=== PATIENT | female | born 1960 | race African-American/Black ===

== ENCOUNTER 2023-03-13 21:03 | Emergency (ER) | payer MEDICAID ==
[~2023-03-13] VITALS: Ht 165.1 cm; Wt 103.4 kg
[~2023-03-13 21:03] MED LIST: AMLO5TAB4 PO; BUME2TAB7 PO; INSU100I26 SQ; INSU100I34 SQ; ISOS30TA86 PO; METO100T14 PO; PANT40TA2 PO
[2023-03-13] MEDS ORDERED: ONDANSETRON ODT 4 MG TAB.RAPDIS SL ONE (21:45)
[2023-03-13] MEDS ORDERED: MORPHINE SULFATE 4 MG/1 ML DISP.SYRIN IM ONE (21:45)
[2023-03-13] MEDS ORDERED: ONDANSETRON ODT 4 MG TAB.RAPDIS ONE (22:12)
[2023-03-13] MEDS ORDERED: MORPHINE SULFATE 4 MG/1 ML DISP.SYRIN ONE (22:13)
--- NOTE | 2023-03-13 22:38 | NUR ---
Patient sleeping with eyes closed, resting comfortably in bed. No signs of acute distress noted.
[2023-03-13] MEDS ORDERED: CYCL5TAB PO (22:42)
[2023-03-13] MEDS ORDERED: MAGN30OR PO (22:42)
[2023-03-13] MEDS ORDERED: OMEP20CA15 PO (22:44)
--- NOTE | 2023-03-14 01:25 | NUR ---
Called [facility] ambulance to [facility]. 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
--- NOTE | 2023-03-14 01:58 | NUR ---
Called [facility] [phone] notify that patient will be going back to facility.
[2023-03-14] MEDS ORDERED: MORPHINE SULFATE 4 MG/1 ML DISP.SYRIN IM ONE (02:00)
[2023-03-14] MEDS ORDERED: MORPHINE SULFATE 4 MG/1 ML DISP.SYRIN ONE (02:07)
--- NOTE | 2023-03-14 02:21 | NUR ---
Patient picked up by [facility] ambulance to take patient to [facility] with personal belongings. Patient in stable condition, no signs of acute distress noted.
[2023-03-14 02:25] VITALS: BP 155/88; TEMP 98.4; O2SAT 97
== END 2023-03-14 02:26 ==
LOC: ER 21:03
DX: S93.402A Sprain of unspecified ligament of left ankle, initial encounter (principal); S93.602A Unspecified sprain of left foot, initial encounter; K21.9 Gastro-esophageal reflux disease without esophagitis; N18.9 Chronic kidney disease, unspecified; E11.9 Type 2 diabetes mellitus without complications; Z79.4 Long term (current) use of insulin; Z79.899 Other long term (current) drug therapy; W18.39XA Other fall on same level, initial encounter; Y93.89 Activity, other specified; Y92.89 Other specified places as the place of occurrence of the external cause; Y99.8 Other external cause status
CPT/HCPCS: 99285; 73700; 73502; 73610; 73630; 96372 ×2; J2270 ×2; A4663; Q0162

== ENCOUNTER 2023-04-16 15:21 | Inpatient (IN) | payer MEDICARE, MEDICAID ==
[~2023-04-16] VITALS: Ht 170.2 cm; Wt 93.0 kg
[~2023-04-16 15:21] MED LIST changes: +CYCL5TAB PO; +MAGN30OR PO; +OMEP20CA15 PO
[2023-04-16] MEDS ORDERED: HYDR-894 PO (16:24)
[2023-04-16] MEDS ORDERED: ACET-73 PO (16:24)
[2023-04-16] MEDS ORDERED: SENN8.6T19 PO (16:24)
[2023-04-16] MEDS ORDERED: DOCU100T2 PO (16:24)
[2023-04-16] MEDS ORDERED: HYDR-3972 PO (16:24)
[2023-04-16] MEDS ORDERED: ZINC220T3 PO (16:24)
[2023-04-16] MEDS ORDERED: ASCO500C18 PO (16:24)
[2023-04-16] MEDS ORDERED: KETOROLAC TROMETHAMINE 15 MG INJ IVP ONE (17:00)
[2023-04-16 17:15] LABS: BASOPHILS # (AUTO) 0.1 K/UL (0.0-0.2); BASOPHILS % (AUTO) 1.9 % (0.0-2.0); DIFFERENTIAL COMMENT 0; EOSINOPHILS # (AUTO) 0.2 K/uL (0.0-0.7); EOSINOPHILS % (AUTO) 2.6 % (0.0-7.0); HEMATOCRIT 24.1 % (31.2-41.9); HEMOGLOBIN 7.8 g/dL (10.9-14.3); LYMPHOCYTES # (AUTO) 0.6 K/uL (0.8-4.8); LYMPHOCYTES % (AUTO) 8.1 % (20.5-51.5); MEAN CORPUSCULAR HEMOGLOBIN 28.4 uug (24.7-32.8); MEAN CORPUSCULAR HGB CONC 32 g/dL (32.3-35.6); MEAN CORPUSCULAR VOLUME 87.7 fL (75.5-95.3); MONOCYTES # (AUTO) 0.5 K/uL (0.1-1.30); MONOCYTES % (AUTO) 7.6 % (0.0-11.0); NEUTROPHILS # (AUTO) 5.5 K/uL (1.8-8.9); NEUTROPHILS % (AUTO) 79.8 % (38.5-71.5); PLATELET COUNT (AUTO) 232 K/uL (179-408); RED BLOOD CELL COUNT(AUTO) 2.75 MIL/uL (3.63-4.92); RED CELL DISTRIBUTION WIDTH 16.2 % (12.3-17.7); WHITE BLOOD COUNT (AUTO) 6.9 K/uL (3.8-11.8)
[2023-04-16 17:26] LABS: CALCIUM 8.5 mg/dL (8.5-10.1); CARBON DIOXIDE 22 mmol/L (21-32); CHLORIDE 109 mmol/L (98-107); CREATININE 3.5 mg/dL (0.6-1.3); GLUCOSE 95 mg/dL (74-106); POTASSIUM 4.2 mmol/L (3.5-5.1); SODIUM SERUM 142 mmol/L (136-145); UREA NITROGEN, BLOOD 60 mg/dL (7-18)
[2023-04-16 17:33] LABS: ALANINE AMINOTRANSFERASE 18 U/L (14-59); ALBUMIN 2.4 g/dL (3.4-5.0); ALKALINE PHOSPHATASE 126 U/L (50-136); ASPARTATE AMINOTRANSFERASE 8 U/L (15-37); BILIRUBIN,DIRECT 0.2 mg/dL (0.0-0.2); BILIRUBIN,TOTAL 0.4 mg/dL (0.2-1.0); LIPASE 30 U/L (73-393); TOTAL PROTEIN, SERUM 6.6 g/dL (6.4-8.2)
[2023-04-16] MEDS ORDERED: KETOROLAC TROMETHAMINE 15 MG INJ ONE (17:37)
[2023-04-16 18:46] LABS: *BILIRUBIN,URIN NEGATIVE (NEGATIVE); *BLOOD, URINE 2+ (NEGATIVE); *CLARITY,URINE CLOUDY (CLEAR); *COLOR,URINE YELLOW (YELLOW); *KETONES,URINE NEGATIVE (NEGATIVE); *UROBILINOGEN,URINE 0.2 E.U./dl (NORMAL); LEUKOCYTE ESTERASE ,URINE 3+ (NEGATIVE); NITRITE, URINE NEGATIVE (NEGATIVE); UGLUCOSE NEGATIVE (NEGATIVE)
[2023-04-16 18:51] LABS: *PROTEIN,URINE 3+ (NEGATIVE)
[2023-04-16] MEDS ORDERED: ONDANSETRON 4 MG/2 ML VIAL IV PRN (21:45)
[2023-04-16] MEDS ORDERED: hydrALAZINE HCL 25 MG TABLET PO PRN (21:45)
[2023-04-16] MEDS ORDERED: HYDROCODONE/APAP 5-325MG TABLET PO PRN (21:45)
[2023-04-17] MEDS ORDERED: ACETAMINOPHEN ES 500 MG TABLET PO PRN (00:15)
[2023-04-17 00:40] VITALS: BP 146/80; TEMP 98.3; O2SAT 98
[2023-04-17] MEDS ORDERED: CEFTRIAXONE /D5W 50ML IVPB **ER PYXIS IV ONE (03:20)
[2023-04-17] MEDS: CEFTRIAXONE 1 G in IV DEXTROSE 5% 50 ML IV SCH ×2 (03:50→20:53)
[2023-04-17 04:00] VITALS: BP 143/60; TEMP 98.1; O2SAT 94
[2023-04-17 06:32] LABS: BASOPHILS # (AUTO) 0.1 K/UL (0.0-0.2); BASOPHILS % (AUTO) 0.8 % (0.0-2.0); EOSINOPHILS # (AUTO) 0.1 K/uL (0.0-0.7); EOSINOPHILS % (AUTO) 2.2 % (0.0-7.0); HEMATOCRIT 25.7 % (31.2-41.9); HEMOGLOBIN 8.5 g/dL (10.9-14.3); LYMPHOCYTES # (AUTO) 0.8 K/uL (0.8-4.8); LYMPHOCYTES % (AUTO) 12.9 % (20.5-51.5); MEAN CORPUSCULAR HEMOGLOBIN 28.7 uug (24.7-32.8); MEAN CORPUSCULAR HGB CONC 33 g/dL (32.3-35.6); MEAN CORPUSCULAR VOLUME 87.4 fL (75.5-95.3); MONOCYTES # (AUTO) 0.7 K/uL (0.1-1.30); NEUTROPHILS # (AUTO) 4.4 K/uL (1.8-8.9); NEUTROPHILS % (AUTO) 72.1 % (38.5-71.5); PLATELET COUNT (AUTO) 244 K/uL (179-408); RED BLOOD CELL COUNT(AUTO) 2.95 MIL/uL (3.63-4.92); RED CELL DISTRIBUTION WIDTH 15.9 % (12.3-17.7); WHITE BLOOD COUNT (AUTO) 6.2 K/uL (3.8-11.8)
[2023-04-17 06:48] LABS: DIFFERENTIAL COMMENT 1
[2023-04-17] MEDS: PANTOPRAZOLE SODIUM 40 MG TABLET.DR PO SCH (07:02)
[2023-04-17] MEDS: CYCLOBENZAPRINE HCL 10 MG TABLET PO SCH ×3 (07:02→21:54)
[2023-04-17 07:07] LABS: THYROID STIMULATING HORMONE 0.915 mIU/mL (0.358-3.740)
[2023-04-17 07:26] LABS: ALBUMIN 2.4 g/dL (3.4-5.0); BILIRUBIN,TOTAL 0.3 mg/dL (0.2-1.0); CALCIUM 8.1 mg/dL (8.5-10.1); CREATININE 3.3 mg/dL (0.6-1.3); MAGNESIUM 1.6 mg/dL (1.8-2.4); PHOSPHOROUS 4.5 mg/dL (2.5-4.9); POTASSIUM 4.1 mmol/L (3.5-5.1); TOTAL PROTEIN, SERUM 6.8 g/dL (6.4-8.2)
[2023-04-17] MEDS: DOCUSATE SODIUM 100 MG CAPSULE PO SCH ×2 (08:26→17:00)
[2023-04-17] MEDS: ASCORBIC ACID 500 MG TABLET PO SCH (08:26)
[2023-04-17] MEDS: ISOSORBIDE MONONITRATE 30 MG TAB.SR.24H PO SCH (08:27)
[2023-04-17] MEDS: ZINC SULFATE 220 MG CAPSULE PO SCH (08:27)
[2023-04-17] MEDS: IV 1/2NS 1000 ML 1,000 ML IV PRN (08:28)
[2023-04-17] MEDS: AMLODIPINE 5 MG TABLET PO SCH (08:28)
[2023-04-17] MEDS ORDERED: METOPROLOL TARTRATE 50 MG TABLET PO ONE (09:00)
[2023-04-17] MEDS ORDERED: MAGNESIUM OXIDE 400 MG TABLET PO ONE (10:30)
[2023-04-17] MEDS: AZITHROMYCIN IV 500 MG in IV DEXTROSE 5% 250 ML IV SCH (11:54)
[2023-04-17] MEDS: MORPHINE SULFATE 2 MG/1 ML DISP.SYRIN IV PRN ×2 (11:54→21:54)
[2023-04-17 12:51] VITALS: BP 158/68; TEMP 97.8; O2SAT 99
[2023-04-17] MEDS ORDERED: REMEDY ESSENTIAL ZINC PASTE 113 GM TOP PRN (13:15)
[2023-04-17 16:16] VITALS: BP 123/55; TEMP 98.2; O2SAT 95
[2023-04-17 18:30] LABS: *OCCULT BLOOD STOOL NEGATIVE (NEGATIVE)
[2023-04-17] MEDS ORDERED: INSULIN REGULAR, HUMAN 300 UNIT/3 ML VIAL SQ PRN (19:45)
[2023-04-17] MEDS ORDERED: DEXTROSE 50% 50 ML DISP.SYRIN IV PRN (19:45)
[2023-04-17 20:29] VITALS: BP 120/53; TEMP 98.3; O2SAT 97
[2023-04-17] MEDS: MUPIROCIN 2% OINT 22 GM TUBE NS SCH (20:53)
[2023-04-17] MEDS: SENNOSIDES 1 TABLET PO SCH (21:00)
[2023-04-17] MEDS: INSULIN GLARGINE,HUM 300 UNITS/3 ML CARTRIDGE SQ SCH (21:01)
[2023-04-17] MEDS: REMEDY ESSENTIAL ZINC PASTE 113 GM TOP SCH (21:05)
[2023-04-17] MEDS: BLOOD SUGAR DIAGNOSTIC 1 EACH STRIP VI SCH (21:06)
[2023-04-18 00:07] VITALS: BP 151/68; TEMP 98.3; O2SAT 95
[2023-04-18] MEDS: IV 1/2NS 1000 ML 1,000 ML IV PRN (02:29)
[2023-04-18 04:05] VITALS: BP 137/63; TEMP 98.2; O2SAT 97
[2023-04-18] MEDS: CYCLOBENZAPRINE HCL 10 MG TABLET PO SCH ×3 (05:18→21:08)
[2023-04-18] MEDS: PANTOPRAZOLE SODIUM 40 MG TABLET.DR PO SCH (06:44)
[2023-04-18] MEDS: BLOOD SUGAR DIAGNOSTIC 1 EACH STRIP VI SCH ×4 (06:45→20:11)
[2023-04-18] MEDS: MUPIROCIN 2% OINT 22 GM TUBE NS SCH ×2 (08:23→20:20)
[2023-04-18] MEDS: DOCUSATE SODIUM 100 MG CAPSULE PO SCH ×2 (08:24→16:29)
[2023-04-18] MEDS: ZINC SULFATE 220 MG CAPSULE PO SCH (08:24)
[2023-04-18] MEDS: ISOSORBIDE MONONITRATE 30 MG TAB.SR.24H PO SCH (08:24)
[2023-04-18] MEDS: AMLODIPINE 5 MG TABLET PO SCH (08:25)
[2023-04-18] MEDS: REMEDY ESSENTIAL ZINC PASTE 113 GM TOP SCH ×2 (08:25→21:03)
[2023-04-18] MEDS: ASCORBIC ACID 500 MG TABLET PO SCH (08:25)
[2023-04-18] MEDS: MEDIHONEY= THERAHONEY 1.5 OZ TUBE TOP SCH (08:26)
[2023-04-18 08:44] VITALS: BP 154/73; TEMP 97.5; O2SAT 98
[2023-04-18] MEDS: MORPHINE SULFATE 2 MG/1 ML DISP.SYRIN IV PRN ×2 (09:53→20:21)
[2023-04-18] MEDS ORDERED: PHENAZOPYRIDINE HCL 100 MG TABLET PO PRN (10:00)
[2023-04-18] MEDS: AZITHROMYCIN IV 500 MG in IV DEXTROSE 5% 250 ML IV SCH (11:05)
[2023-04-18 11:24] VITALS: BP 122/55; TEMP 97.9; O2SAT 94
[2023-04-18 16:24] VITALS: BP 150/70; TEMP 98; O2SAT 98
[2023-04-18] MEDS ORDERED: BLOOD SUGAR DIAGNOSTIC 1 EACH STRIP VI SCH (16:30)
[2023-04-18] MEDS ORDERED: INSULIN REGULAR, HUMAN 300 UNIT/3 ML VIAL SQ PRN (17:00)
[2023-04-18] MEDS ORDERED: DEXTROSE 50% 50 ML DISP.SYRIN IV PRN (17:00)
[2023-04-18] MEDS: CEFTRIAXONE 1 G in IV DEXTROSE 5% 50 ML IV SCH (20:20)
[2023-04-18 20:36] VITALS: BP 138/67; TEMP 98.3; O2SAT 94
[2023-04-18] MEDS: SENNOSIDES 1 TABLET PO SCH (21:00)
[2023-04-18] MEDS: INSULIN GLARGINE,HUM 300 UNITS/3 ML CARTRIDGE SQ SCH (21:00)
[2023-04-19] VITALS (11 sets, daily range): BP systolic 106–147; BP diastolic 61–76; TEMP 98.1–98.4; O2SAT 95–99
[2023-04-19] MEDS: PANTOPRAZOLE SODIUM 40 MG TABLET.DR PO SCH (05:24)
[2023-04-19] MEDS: CYCLOBENZAPRINE HCL 10 MG TABLET PO SCH ×3 (05:24→22:28)
[2023-04-19] MEDS: IV 1/2NS 1000 ML 1,000 ML IV PRN (06:33)
[2023-04-19] MEDS: BLOOD SUGAR DIAGNOSTIC 1 EACH STRIP VI SCH ×3 (06:35→16:12)
[2023-04-19] MEDS: ZINC SULFATE 220 MG CAPSULE PO SCH (08:57)
[2023-04-19] MEDS: ASCORBIC ACID 500 MG TABLET PO SCH (08:57)
[2023-04-19] MEDS: AZITHROMYCIN 250 MG TABLET PO SCH (08:57)
[2023-04-19] MEDS: AMLODIPINE 5 MG TABLET PO SCH (08:58)
[2023-04-19] MEDS: ISOSORBIDE MONONITRATE 30 MG TAB.SR.24H PO SCH (08:58)
[2023-04-19] MEDS: MEDIHONEY= THERAHONEY 1.5 OZ TUBE TOP SCH (09:09)
[2023-04-19] MEDS: MUPIROCIN 2% OINT 22 GM TUBE NS SCH ×2 (09:09→20:42)
[2023-04-19] MEDS: REMEDY ESSENTIAL ZINC PASTE 113 GM TOP SCH ×2 (09:09→20:43)
[2023-04-19] MEDS: MORPHINE SULFATE 2 MG/1 ML DISP.SYRIN IV PRN ×2 (10:08→22:43)
[2023-04-19 10:36] LABS: BASOPHILS % (AUTO) 0.9 % (0.0-2.0); EOSINOPHILS # (AUTO) 0.2 K/uL (0.0-0.7); HEMATOCRIT 22.4 % (31.2-41.9); LYMPHOCYTES # (AUTO) 0.9 K/uL (0.8-4.8); LYMPHOCYTES % (AUTO) 16.6 % (20.5-51.5); MEAN CORPUSCULAR HEMOGLOBIN 28.5 uug (24.7-32.8); MEAN CORPUSCULAR HGB CONC 33 g/dL (32.3-35.6); MEAN CORPUSCULAR VOLUME 86.9 fL (75.5-95.3); MONOCYTES # (AUTO) 0.8 K/uL (0.1-1.30); MONOCYTES % (AUTO) 15.7 % (0.0-11.0); NEUTROPHILS # (AUTO) 3.3 K/uL (1.8-8.9); NEUTROPHILS % (AUTO) 62.8 % (38.5-71.5); PLATELET COUNT (AUTO) 228 K/uL (179-408); RED BLOOD CELL COUNT(AUTO) 2.58 MIL/uL (3.63-4.92); RED CELL DISTRIBUTION WIDTH 15.5 % (12.3-17.7); WHITE BLOOD COUNT (AUTO) 5.3 K/uL (3.8-11.8)
[2023-04-19 10:45] LABS: CALCIUM 8.1 mg/dL (8.5-10.1); CREATININE 3.8 mg/dL (0.6-1.3); POTASSIUM 4.1 mmol/L (3.5-5.1)
[2023-04-19 10:50] LABS: DIFFERENTIAL COMMENT 1
[2023-04-19 10:51] LABS: HEMOGLOBIN 7.3 g/dL (10.9-14.3)
[2023-04-19 11:00] LABS: LYMPHOCYTES % (MANUAL) 0 % (20-40); NEUTROPHILS % (MANUAL) 0 % (42-75)
[2023-04-19] MEDS: DOCUSATE SODIUM 100 MG CAPSULE PO SCH (17:42)
[2023-04-19] MEDS: SENNOSIDES 1 TABLET PO SCH ×2 (20:39→20:55)
[2023-04-19] MEDS: INSULIN GLARGINE,HUM 300 UNITS/3 ML CARTRIDGE SQ SCH (20:47)
[2023-04-19] MEDS: CEFTRIAXONE 1 G in IV DEXTROSE 5% 50 ML IV SCH (22:41)
[2023-04-20 05:37] VITALS: BP 133/65; TEMP 97.9; O2SAT 95
[2023-04-20] MEDS: PANTOPRAZOLE SODIUM 40 MG TABLET.DR PO SCH (06:12)
[2023-04-20] MEDS: CYCLOBENZAPRINE HCL 10 MG TABLET PO SCH ×2 (06:12→13:16)
[2023-04-20] MEDS: BLOOD SUGAR DIAGNOSTIC 1 EACH STRIP VI SCH (06:22)
[2023-04-20 06:29] LABS: BASOPHILS # (AUTO) 0.1 K/UL (0.0-0.2); EOSINOPHILS # (AUTO) 0.2 K/uL (0.0-0.7); EOSINOPHILS % (AUTO) 3.5 % (0.0-7.0); HEMATOCRIT 28.4 % (31.2-41.9); HEMOGLOBIN 9.5 g/dL (10.9-14.3); LYMPHOCYTES # (AUTO) 0.9 K/uL (0.8-4.8); LYMPHOCYTES % (AUTO) 16.6 % (20.5-51.5); MEAN CORPUSCULAR HEMOGLOBIN 28.7 uug (24.7-32.8); MEAN CORPUSCULAR HGB CONC 33 g/dL (32.3-35.6); MEAN CORPUSCULAR VOLUME 86.2 fL (75.5-95.3); MONOCYTES # (AUTO) 0.9 K/uL (0.1-1.30); MONOCYTES % (AUTO) 15.9 % (0.0-11.0); NEUTROPHILS # (AUTO) 3.5 K/uL (1.8-8.9); PLATELET COUNT (AUTO) 260 K/uL (179-408); RED BLOOD CELL COUNT(AUTO) 3.29 MIL/uL (3.63-4.92); RED CELL DISTRIBUTION WIDTH 15.6 % (12.3-17.7); WHITE BLOOD COUNT (AUTO) 5.5 K/uL (3.8-11.8)
[2023-04-20 06:40] LABS: ALANINE AMINOTRANSFERASE 15 U/L (14-59); ALBUMIN 2.1 g/dL (3.4-5.0); ALKALINE PHOSPHATASE 114 U/L (50-136); ASPARTATE AMINOTRANSFERASE < 5 U/L (15-37); BILIRUBIN,TOTAL 0.3 mg/dL (0.2-1.0); CALCIUM 8.3 mg/dL (8.5-10.1); CARBON DIOXIDE 21 mmol/L (21-32); CHLORIDE 107 mmol/L (98-107); CREATININE 3.7 mg/dL (0.6-1.3); GLUCOSE 96 mg/dL (74-106); MAGNESIUM 1.8 mg/dL (1.8-2.4); PHOSPHOROUS 3.9 mg/dL (2.5-4.9); POTASSIUM 4.2 mmol/L (3.5-5.1); SODIUM SERUM 139 mmol/L (136-145); TOTAL PROTEIN, SERUM 6.5 g/dL (6.4-8.2); UREA NITROGEN, BLOOD 47 mg/dL (7-18)
[2023-04-20 06:55] LABS: DIFFERENTIAL COMMENT 1
[2023-04-20 08:00] VITALS: BP 149/72; TEMP 97.6; O2SAT 97
[2023-04-20] MEDS ORDERED: CEFT1VIA15 IV (08:39)
[2023-04-20] MEDS: ASCORBIC ACID 500 MG TABLET PO SCH (08:45)
[2023-04-20] MEDS: AMLODIPINE 5 MG TABLET PO SCH (08:45)
[2023-04-20] MEDS: ZINC SULFATE 220 MG CAPSULE PO SCH (08:45)
[2023-04-20] MEDS: DOCUSATE SODIUM 100 MG CAPSULE PO SCH (08:46)
[2023-04-20] MEDS: ISOSORBIDE MONONITRATE 30 MG TAB.SR.24H PO SCH (08:46)
[2023-04-20] MEDS: AZITHROMYCIN 250 MG TABLET PO SCH (08:46)
[2023-04-20] MEDS: MUPIROCIN 2% OINT 22 GM TUBE NS SCH (08:49)
[2023-04-20] MEDS: MEDIHONEY= THERAHONEY 1.5 OZ TUBE TOP SCH (08:49)
[2023-04-20] MEDS: REMEDY ESSENTIAL ZINC PASTE 113 GM TOP SCH (08:50)
[2023-04-20 11:13] LABS: ANISOCYTOSIS 1+; EOSINOPHILS % (MANUAL) 3 % (0-8); LYMPHOCYTES % (MANUAL) 23 % (20-40); MONOCYTES % (MANUAL) 15 % (2-10); NEUTROPHILS % (MANUAL) 59 % (42-75); PLATELET ESTIMATE ADEQUATE
[2023-04-20 11:14] VITALS: BP 159/83; TEMP 98.3; O2SAT 96
[2023-04-20 11:24] VITALS: BP 159/83
[2023-04-20] MEDS: MORPHINE SULFATE 2 MG/1 ML DISP.SYRIN IV PRN (13:33)
[2023-04-20] MEDS ORDERED: OXYCODONE/APAP 5-325 MG TABLET PO PRN (15:00)
== END 2023-04-20 15:15 | DRG 689 ==
LOC: ER 15:26 → TELE3 23:46 → MEDSURG3 04-19 10:15
PROVIDERS: ADMIT Internal Medicine; ATTEND Internal Medicine
PROC: 30233N1 Transfusion of Nonautologous Red Blood Cells into Peripheral Vein, Percutaneous Approach (ICD-10-PCS; principal; 2023-04-19)
DX: N39.0 Urinary tract infection, site not specified (principal); E43 Unspecified severe protein-calorie malnutrition; J15.9 Unspecified bacterial pneumonia; N17.9 Acute kidney failure, unspecified; I13.0 Hypertensive heart and chronic kidney disease with heart failure and stage 1 through stage 4 chronic kidney disease, or unspecified chronic kidney disease; I50.32 Chronic diastolic (congestive) heart failure; N18.4 Chronic kidney disease, stage 4 (severe); L97.421 Non-pressure chronic ulcer of left heel and midfoot limited to breakdown of skin; D68.59 Other primary thrombophilia; K45.8 Other specified abdominal hernia without obstruction or gangrene; M89.8X9 Other specified disorders of bone, unspecified site; Z74.09 Other reduced mobility; E11.22 Type 2 diabetes mellitus with diabetic chronic kidney disease; G89.29 Other chronic pain; L90.5 Scar conditions and fibrosis of skin; E66.9 Obesity, unspecified; Z68.32 Body mass index [BMI] 32.0-32.9, adult; Z71.3 Dietary counseling and surveillance; Z87.891 Personal history of nicotine dependence; E11.621 Type 2 diabetes mellitus with foot ulcer; Z22.322 Carrier or suspected carrier of Methicillin resistant Staphylococcus aureus; Z79.899 Other long term (current) drug therapy; Z93.3 Colostomy status; Z59.01 Sheltered homelessness; Y95 Nosocomial condition; S30.0XXA Contusion of lower back and pelvis, initial encounter; X58.XXXA Exposure to other specified factors, initial encounter; Y92.129 Unspecified place in nursing home as the place of occurrence of the external cause; E11.42 Type 2 diabetes mellitus with diabetic polyneuropathy; D64.9 Anemia, unspecified; D63.8 Anemia in other chronic diseases classified elsewhere; Z79.4 Long term (current) use of insulin; Z93.2 Ileostomy status; Z20.822 Contact with and (suspected) exposure to COVID-19
CPT/HCPCS: 36415; 70030-TC; 71045; 83550; 83605; 83690; 83735; 84100; 84443; 84484; 85025; 85610; 86850; 86900; 86901; 86920; 87040; 93005; A4663; A6209; C1758; G0378; J0456; J0696; J1815; J1885; J2270; J7050; P9016; Q0144

== ENCOUNTER 2023-08-02 11:00 | Inpatient (IN) | payer MEDICARE, OTHER ==
[~2023-08-02] VITALS: Ht 170.2 cm; Wt 90.3 kg
[2023-08-02] MEDS: ACIDOPHILUS/BULGARICUS CHEW TAB PO SCH
[~2023-08-02 11:00] MED LIST changes: +ACET-73 PO; +ASCO500C18 PO; +CEFT1VIA15 IV; +DOCU100T2 PO; +HYDR-3972 PO; +HYDR-894 PO; -PANT40TA2 PO; +SENN8.6T19 PO; +ZINC220T3 PO
[2023-08-02] MEDS ORDERED: IV NORMAL SALINE 1000 ML BAG IV ONE (11:15)
[2023-08-02] MEDS ORDERED: CEFTRIAXONE 1 G in IV DEXTROSE 5% 50 ML IV ONE (11:15)
[2023-08-02] MEDS ORDERED: CLINDAMYCIN PHOSPHATE IV 600 MG in IV DEXTROSE 5% 100 ML IV ONE (11:15)
[2023-08-02] MEDS ORDERED: VANCOMYCIN IV 1,000 MG in IV DEXTROSE 5% 250 ML IV ONE (11:15)
[2023-08-02] MEDS ORDERED: CEFTRIAXONE /D5W 50ML IVPB **ER PYXIS IV ONE (11:31)
[2023-08-02] MEDS ORDERED: VANCOMYCIN IV 200 ML ONE (11:34)
[2023-08-02] MEDS ORDERED: CLINDAMYCIN 600 MG PIGGYBACK**ER OMNI IV ONE (11:34)
[2023-08-02] MEDS ORDERED: ACET-3117 PO (11:35)
[2023-08-02] MEDS ORDERED: PANT40TA49 PO (11:35)
[2023-08-02] MEDS ORDERED: COLL30OI TP (11:35)
[2023-08-02] MEDS ORDERED: FURO-151 PO (11:35)
[2023-08-02] MEDS ORDERED: AMLO10TA59 PO (11:35)
[2023-08-02] MEDS ORDERED: TRAM50TA2 PO (11:35)
[2023-08-02] MEDS ORDERED: ONDA4TAB11 PO (11:35)
[2023-08-02 11:47] LABS: BASOPHILS # (AUTO) 0.1 K/UL (0.0-0.2); BASOPHILS % (AUTO) 1.2 % (0.0-2.0); EOSINOPHILS # (AUTO) 0.2 K/uL (0.0-0.7); EOSINOPHILS % (AUTO) 2.9 % (0.0-7.0); HEMOGLOBIN 7.7 g/dL (10.9-14.3); LYMPHOCYTES # (AUTO) 1.2 K/uL (0.8-4.8); LYMPHOCYTES % (AUTO) 18.8 % (20.5-51.5); MEAN CORPUSCULAR HEMOGLOBIN 29.8 uug (24.7-32.8); MEAN CORPUSCULAR HGB CONC 32 g/dL (32.3-35.6); MEAN CORPUSCULAR VOLUME 93.2 fL (75.5-95.3); MONOCYTES # (AUTO) 0.8 K/uL (0.1-1.30); MONOCYTES % (AUTO) 12.8 % (0.0-11.0); NEUTROPHILS % (AUTO) 64.3 % (38.5-71.5); PLATELET COUNT (AUTO) 266 K/uL (179-408); RED BLOOD CELL COUNT(AUTO) 2.58 MIL/uL (3.63-4.92); RED CELL DISTRIBUTION WIDTH 16.3 % (12.3-17.7); WHITE BLOOD COUNT (AUTO) 6.2 K/uL (3.8-11.8)
[2023-08-02 12:01] LABS: DIFFERENTIAL COMMENT 1
[2023-08-02] MEDS ORDERED: GLUC1KIT IM (12:08)
[2023-08-02] MEDS ORDERED: OXYC-128 PO (12:08)
[2023-08-02] MEDS ORDERED: INSU100V28 SQ (12:08)
[2023-08-02 12:16] LABS: ALANINE AMINOTRANSFERASE 63 U/L (14-59); ALBUMIN 2.5 g/dL (3.4-5.0); ALKALINE PHOSPHATASE 130 U/L (50-136); ASPARTATE AMINOTRANSFERASE 27 U/L (15-37); BILIRUBIN,DIRECT 0.1 mg/dL (0.0-0.2); BILIRUBIN,TOTAL 0.2 mg/dL (0.2-1.0); CARBON DIOXIDE 21 mmol/L (21-32); CHLORIDE 112 mmol/L (98-107); CREATININE 3.5 mg/dL (0.6-1.3); GLUCOSE 64 mg/dL (74-106); SODIUM SERUM 143 mmol/L (136-145); TOTAL PROTEIN, SERUM 6.6 g/dL (6.4-8.2); UREA NITROGEN, BLOOD 76 mg/dL (7-18)
[2023-08-02 12:58] LABS: POTASSIUM 6.5 mmol/L (3.5-5.1)
[2023-08-02 13:07] LABS: NT-PRO BNP 2461 pg/mL (0-125)
[2023-08-02] MEDS ORDERED: hydrALAZINE HCL 20 MG/1 ML VIAL ONE (16:09)
[2023-08-02] MEDS ORDERED: hydrALAZINE HCL 20 MG/1 ML VIAL IV ONE (16:15)
[2023-08-02] MEDS ORDERED: DEXTROSE 50% 50 ML DISP.SYRIN IV ONE (19:00)
[2023-08-02] MEDS ORDERED: ALBUTEROL SULFATE 2.5 MG/3 ML NEBU NEB ONE (19:00)
[2023-08-02] MEDS ORDERED: FUROSEMIDE 20 MG/2 ML VIAL IVP ONE (19:00)
[2023-08-02] MEDS ORDERED: SODIUM BICARBONATE 8.4% 50 MEQ/50 ML DISP.SYRIN IV ONE ×2 (19:00→19:19)
[2023-08-02] MEDS ORDERED: INSULIN REGULAR, HUMAN 300 UNIT/3 ML VIAL IV ONE (19:00)
[2023-08-02] MEDS ORDERED: ALBUTEROL SULFATE 2.5 MG/3 ML NEBU ONE ×2 (19:14)
[2023-08-02 19:15] VITALS: O2SAT 99
[2023-08-02] MEDS ORDERED: FUROSEMIDE 20 MG/2 ML VIAL ONE (19:17)
[2023-08-02] MEDS ORDERED: SODIUM POLYSTYRENE SULFONATE 15 G/60 ML LIQUID UDC ONE (19:19)
[2023-08-02] MEDS ORDERED: INSULIN REGULAR, HUMAN 300 UNIT/3 ML VIAL ONE (19:19)
[2023-08-02 19:25] VITALS: O2SAT 99
[2023-08-02 19:30] VITALS: O2SAT 100
[2023-08-02] MEDS: SODIUM POLYSTYRENE SULFONATE 15 G/60 ML LIQUID UDC PO ONE ×2 (19:38→20:00)
[2023-08-02 20:16] LABS: CALCIUM 8.9 mg/dL (8.5-10.1); CREATININE 3.5 mg/dL (0.6-1.3)
[2023-08-02 20:21] LABS: POTASSIUM 6.4 mmol/L (3.5-5.1)
[2023-08-02] MEDS ORDERED: hydrALAZINE HCL 25 MG TABLET PO PRN (20:45)
[2023-08-02] MEDS ORDERED: DEXTROSE 50% 50 ML DISP.SYRIN IV PRN (20:45)
[2023-08-02] MEDS: BLOOD SUGAR DIAGNOSTIC 1 EACH STRIP VI SCH (20:58)
[2023-08-02] MEDS ORDERED: PIPERACILLIN/TAZOBACTAM/D5W 50 ML ONE (21:38)
[2023-08-02] MEDS ORDERED: SODIUM POLYSTYRENE SULFONATE 15 G/60 ML LIQUID UDC PO ONE (22:24)
[2023-08-02] MEDS ORDERED: ACETAMINOPHEN 325 MG TABLET PO PRN (22:30)
[2023-08-02 23:15] VITALS: BP 120/53; TEMP 97.7; O2SAT 100
[2023-08-02] MEDS: SENNOSIDES 1 TABLET PO SCH (23:16)
[2023-08-02] MEDS: OXYCODONE/APAP 5-325 MG TABLET PO PRN (23:18)
[2023-08-02] MEDS: CYCLOBENZAPRINE HCL 10 MG TABLET PO SCH (23:19)
[2023-08-02] MEDS: HEPARIN SODIUM,PORCINE 5,000 UNITS/ML VIAL SQ SCH (23:19)
[2023-08-02] MEDS: PIPERACILLIN/TAZO 2.25 G in IV DEXTROSE 5% 50 ML IV SCH (23:20)
[2023-08-03] MEDS: IV 1/2NS 1000 ML 1,000 ML IV PRN (00:30)
[2023-08-03] MEDS ORDERED: PIPERACILLIN/TAZO 2.25 GM VIAL ONE (02:46)
[2023-08-03 04:20] VITALS: BP 106/45; TEMP 98; O2SAT 95
[2023-08-03 04:59] LABS: *BILIRUBIN,URIN NEGATIVE (NEGATIVE); *BLOOD, URINE 2+ (NEGATIVE); *COLOR,URINE YELLOW (YELLOW); *KETONES,URINE NEGATIVE (NEGATIVE); *UROBILINOGEN,URINE 0.2 E.U./dl (NORMAL); LEUKOCYTE ESTERASE ,URINE 1+ (NEGATIVE); NITRITE, URINE POSITIVE (NEGATIVE); UGLUCOSE NEGATIVE (NEGATIVE)
[2023-08-03 05:01] LABS: *CLARITY,URINE HAZY (CLEAR); *PROTEIN,URINE 3+ (NEGATIVE)
[2023-08-03 05:22] LABS: WBC,URINE 50-80 /HPF (0-3)
[2023-08-03 05:23] LABS: BACTERIA,URINE MANY /HPF (NONE SEEN); SQUAMOUS EPITHELIAL CELL,UR FEW /HPF (NONE SEEN)
[2023-08-03] MEDS: PIPERACILLIN/TAZO 2.25 G in IV DEXTROSE 5% 50 ML IV SCH ×3 (05:33→22:12)
[2023-08-03] MEDS: PANTOPRAZOLE SODIUM 40 MG TABLET.DR PO SCH (06:13)
[2023-08-03] MEDS: CYCLOBENZAPRINE HCL 10 MG TABLET PO SCH (06:13)
[2023-08-03] MEDS: BLOOD SUGAR DIAGNOSTIC 1 EACH STRIP VI SCH ×4 (06:36→20:52)
[2023-08-03 08:16] LABS: BASOPHILS # (AUTO) 0.1 K/UL (0.0-0.2); EOSINOPHILS # (AUTO) 0.1 K/uL (0.0-0.7); EOSINOPHILS % (AUTO) 1.4 % (0.0-7.0); HEMATOCRIT 21.1 % (31.2-41.9); LYMPHOCYTES % (AUTO) 17.9 % (20.5-51.5); MEAN CORPUSCULAR HEMOGLOBIN 29.4 uug (24.7-32.8); MEAN CORPUSCULAR HGB CONC 31 g/dL (32.3-35.6); MONOCYTES # (AUTO) 0.7 K/uL (0.1-1.30); MONOCYTES % (AUTO) 12.7 % (0.0-11.0); NEUTROPHILS # (AUTO) 3.8 K/uL (1.8-8.9); PLATELET COUNT (AUTO) 213 K/uL (179-408); RED CELL DISTRIBUTION WIDTH 16.5 % (12.3-17.7); WHITE BLOOD COUNT (AUTO) 5.6 K/uL (3.8-11.8)
[2023-08-03] MEDS: ASCORBIC ACID 500 MG TABLET PO SCH (08:20)
[2023-08-03] MEDS: AMLODIPINE 10 MG TABLET PO SCH (08:20)
[2023-08-03] MEDS: METOPROLOL TARTRATE 50 MG TABLET PO SCH ×2 (08:21→20:42)
[2023-08-03] MEDS: ACIDOPHILUS/BULGARICUS CHEW TAB PO SCH ×3 (08:21→21:00)
[2023-08-03] MEDS: DOCUSATE SODIUM 100 MG CAPSULE PO SCH ×3 (08:21→17:34)
[2023-08-03] MEDS: HEPARIN SODIUM,PORCINE 5,000 UNITS/ML VIAL SQ SCH ×2 (08:22→20:44)
[2023-08-03 08:51] LABS: DIFFERENTIAL COMMENT 1; RED BLOOD CELL COUNT(AUTO) 2.25 MIL/uL (3.63-4.92)
[2023-08-03 08:53] LABS: HEMOGLOBIN 6.6 g/dL (10.9-14.3)
[2023-08-03 08:54] LABS: THYROID STIMULATING HORMONE 0.851 mIU/mL (0.358-3.740)
[2023-08-03] MEDS ORDERED: ISOSORBIDE MONONITRATE 30 MG TAB.SR.24H PO SCH ×2 (09:00)
[2023-08-03 09:17] LABS: ALBUMIN 2.2 g/dL (3.4-5.0); CREATININE 3.7 mg/dL (0.6-1.3); MAGNESIUM 1.7 mg/dL (1.8-2.4); PHOSPHOROUS 4.8 mg/dL (2.5-4.9); POTASSIUM 6.1 mmol/L (3.5-5.1); TOTAL PROTEIN, SERUM 5.8 g/dL (6.4-8.2)
[2023-08-03 09:29] LABS: BILIRUBIN,TOTAL 0.2 mg/dL (0.2-1.0); CALCIUM 8.2 mg/dL (8.5-10.1)
[2023-08-03] MEDS ORDERED: MAGNESIUM OXIDE 400 MG TABLET PO ONE (09:30)
[2023-08-03] MEDS ORDERED: DEXTROSE 50% 50 ML DISP.SYRIN IV ONE (09:30)
[2023-08-03] MEDS ORDERED: INSULIN REGULAR, HUMAN 300 UNIT/3 ML VIAL IV ONE (09:30)
[2023-08-03] MEDS ORDERED: VANCOMYCIN IV 1,000 MG in IV DEXTROSE 5% 250 ML IV ONE (10:00)
[2023-08-03 10:05] LABS: IRON, SERUM 28 ug/dL (50-175)
[2023-08-03] MEDS ORDERED: REMEDY ESSENTIAL ZINC PASTE 113 GM TOP PRN (10:30)
[2023-08-03 11:55] VITALS: BP 106/58; TEMP 98.7; O2SAT 97
[2023-08-03] MEDS: ISOSORBIDE MONONITRATE 30 MG TAB.SR.24H PO SCH (12:21)
[2023-08-03] MEDS ORDERED: SODIUM POLYSTYRENE SULFONATE 15 G/60 ML LIQUID UDC PO ONE (13:15)
[2023-08-03] MEDS: SODIUM CITRATE/CITRIC ACID (500/334MG/5ML) UDC 30 ML SOLUTION PO SCH ×3 (13:37→20:35)
[2023-08-03] MEDS ORDERED: CYCLOBENZAPRINE HCL 10 MG TABLET PO PRN (14:00)
[2023-08-03 16:03] VITALS: BP 134/56; TEMP 96.6; O2SAT 97
[2023-08-03] MEDS ORDERED: CADEXOMER IODINE 40 GM TUBE TOP SCH (17:00)
[2023-08-03] MEDS: CLOTRIMAZOLE 1% CREAM 30 GM TUBE TOP SCH (17:00)
[2023-08-03 17:10] LABS: EOSINOPHILS % (MANUAL) 2 % (0-8); LYMPHOCYTES % (MANUAL) 20 % (20-40); MONOCYTES % (MANUAL) 14 % (2-10); NEUTROPHILS % (MANUAL) 64 % (42-75)
[2023-08-03 17:11] LABS: ANISOCYTOSIS 2+; PLATELET ESTIMATE ADEQUATE
[2023-08-03 20:24] VITALS: BP 106/43; TEMP 98.5; O2SAT 94
[2023-08-03] MEDS: REMEDY ESSENTIAL ZINC PASTE 113 GM TOP SCH (20:36)
[2023-08-03] MEDS: SENNOSIDES 1 TABLET PO SCH ×2 (20:36→21:00)
[2023-08-04] VITALS (9 sets, daily range): BP systolic 120–171; BP diastolic 52–75; TEMP 98.2–98.5; O2SAT 96–98
[2023-08-04] MEDS: PANTOPRAZOLE SODIUM 40 MG TABLET.DR PO SCH ×2 (06:27→06:37)
[2023-08-04] MEDS: PIPERACILLIN/TAZO 2.25 G in IV DEXTROSE 5% 50 ML IV SCH (06:27)
[2023-08-04] MEDS: BLOOD SUGAR DIAGNOSTIC 1 EACH STRIP VI SCH ×4 (06:33→20:48)
[2023-08-04] MEDS: ACIDOPHILUS/BULGARICUS CHEW TAB PO SCH ×2 (08:50→20:38)
[2023-08-04] MEDS: ISOSORBIDE MONONITRATE 30 MG TAB.SR.24H PO SCH (08:51)
[2023-08-04] MEDS: OXYCODONE/APAP 5-325 MG TABLET PO PRN (08:52)
[2023-08-04] MEDS: METOPROLOL TARTRATE 50 MG TABLET PO SCH ×2 (08:52→20:39)
[2023-08-04] MEDS: CADEXOMER IODINE 40 GM TUBE TOP SCH ×2 (08:53→16:40)
[2023-08-04] MEDS: AMLODIPINE 10 MG TABLET PO SCH (08:53)
[2023-08-04] MEDS: ASCORBIC ACID 500 MG TABLET PO SCH (08:53)
[2023-08-04] MEDS: CLOTRIMAZOLE 1% CREAM 30 GM TUBE TOP SCH ×2 (08:54→16:41)
[2023-08-04] MEDS: SODIUM CITRATE/CITRIC ACID (500/334MG/5ML) UDC 30 ML SOLUTION PO SCH ×4 (08:55→20:39)
[2023-08-04] MEDS: REMEDY ESSENTIAL ZINC PASTE 113 GM TOP SCH ×2 (08:55→20:41)
[2023-08-04] MEDS: DOCUSATE SODIUM 100 MG CAPSULE PO SCH ×2 (08:55→16:11)
[2023-08-04] MEDS ORDERED: CADEXOMER IODINE 40 GM TUBE TOP SCH (09:00)
[2023-08-04 09:18] LABS: BASOPHILS # (AUTO) 0.1 K/UL (0.0-0.2); BASOPHILS % (AUTO) 1.6 % (0.0-2.0); EOSINOPHILS # (AUTO) 0.2 K/uL (0.0-0.7); EOSINOPHILS % (AUTO) 2.2 % (0.0-7.0); HEMATOCRIT 25.1 % (31.2-41.9); HEMOGLOBIN 8.2 g/dL (10.9-14.3); LYMPHOCYTES # (AUTO) 0.9 K/uL (0.8-4.8); LYMPHOCYTES % (AUTO) 13.2 % (20.5-51.5); MEAN CORPUSCULAR HEMOGLOBIN 30.1 uug (24.7-32.8); MEAN CORPUSCULAR HGB CONC 33 g/dL (32.3-35.6); MEAN CORPUSCULAR VOLUME 92.2 fL (75.5-95.3); MONOCYTES # (AUTO) 0.9 K/uL (0.1-1.30); MONOCYTES % (AUTO) 12.3 % (0.0-11.0); NEUTROPHILS % (AUTO) 70.7 % (38.5-71.5); PLATELET COUNT (AUTO) 208 K/uL (179-408); RED BLOOD CELL COUNT(AUTO) 2.73 MIL/uL (3.63-4.92); RED CELL DISTRIBUTION WIDTH 15.9 % (12.3-17.7); WHITE BLOOD COUNT (AUTO) 7.1 K/uL (3.8-11.8)
[2023-08-04 09:27] LABS: ALBUMIN 2.2 g/dL (3.4-5.0); BILIRUBIN,TOTAL 0.3 mg/dL (0.2-1.0); CALCIUM 8.6 mg/dL (8.5-10.1); CREATININE 3.8 mg/dL (0.6-1.3); MAGNESIUM 1.6 mg/dL (1.8-2.4); PHOSPHOROUS 4.8 mg/dL (2.5-4.9); TOTAL PROTEIN, SERUM 6.1 g/dL (6.4-8.2); VANCOMYCIN,RANDOM 19.5 ug/mL (20.0-30.0)
[2023-08-04] MEDS: IV 1/2NS 1000 ML 1,000 ML IV PRN (09:36)
[2023-08-04 09:40] LABS: DIFFERENTIAL COMMENT 1
[2023-08-04] MEDS: CEFEPIME HCL 2 G in IV DEXTROSE 5% 100 ML IV SCH (13:11)
[2023-08-04 13:54] LABS: BILIRUBIN,TOTAL 0.2 mg/dL (0.2-1.0); CALCIUM 8.5 mg/dL (8.5-10.1); CREATININE 3.7 mg/dL (0.6-1.3); POTASSIUM 5.2 mmol/L (3.5-5.1); TOTAL PROTEIN, SERUM 5.8 g/dL (6.4-8.2)
[2023-08-04 15:43] LABS: *OCCULT BLOOD STOOL NEGATIVE (NEGATIVE)
[2023-08-04] MEDS: INSULIN REGULAR, HUMAN 300 UNIT/3 ML VIAL SQ PRN ×2 (16:42→20:51)
[2023-08-04] MEDS: SENNOSIDES 1 TABLET PO SCH (20:39)
[2023-08-05 04:38] VITALS: BP 136/49; TEMP 98.2; O2SAT 93
[2023-08-05] MEDS: PANTOPRAZOLE SODIUM 40 MG TABLET.DR PO SCH (06:24)
[2023-08-05] MEDS: BLOOD SUGAR DIAGNOSTIC 1 EACH STRIP VI SCH ×4 (06:45→21:30)
[2023-08-05 07:04] LABS: BASOPHILS # (AUTO) 0.1 K/UL (0.0-0.2); BASOPHILS % (AUTO) 0.9 % (0.0-2.0); EOSINOPHILS # (AUTO) 0.1 K/uL (0.0-0.7); HEMATOCRIT 23.7 % (31.2-41.9); HEMOGLOBIN 7.6 g/dL (10.9-14.3); LYMPHOCYTES # (AUTO) 0.8 K/uL (0.8-4.8); LYMPHOCYTES % (AUTO) 13.9 % (20.5-51.5); MEAN CORPUSCULAR HGB CONC 32 g/dL (32.3-35.6); MEAN CORPUSCULAR VOLUME 93.6 fL (75.5-95.3); MONOCYTES # (AUTO) 0.6 K/uL (0.1-1.30); MONOCYTES % (AUTO) 10.8 % (0.0-11.0); NEUTROPHILS # (AUTO) 4.3 K/uL (1.8-8.9); NEUTROPHILS % (AUTO) 72.4 % (38.5-71.5); PLATELET COUNT (AUTO) 64 K/uL (179-408); RED BLOOD CELL COUNT(AUTO) 2.53 MIL/uL (3.63-4.92); RED CELL DISTRIBUTION WIDTH 16.1 % (12.3-17.7); WHITE BLOOD COUNT (AUTO) 5.9 K/uL (3.8-11.8)
[2023-08-05 07:11] LABS: DIFFERENTIAL COMMENT 1
[2023-08-05 07:25] LABS: CALCIUM 8.5 mg/dL (8.5-10.1); CREATININE 3.6 mg/dL (0.6-1.3); MAGNESIUM 1.8 mg/dL (1.8-2.4); PHOSPHOROUS 4.8 mg/dL (2.5-4.9); POTASSIUM 5.4 mmol/L (3.5-5.1); VANCOMYCIN,RANDOM 16.2 ug/mL (20.0-30.0)
[2023-08-05] MEDS: ACIDOPHILUS/BULGARICUS CHEW TAB PO SCH ×2 (09:16→21:00)
[2023-08-05] MEDS: ASCORBIC ACID 500 MG TABLET PO SCH (09:16)
[2023-08-05] MEDS: DOCUSATE SODIUM 100 MG CAPSULE PO SCH ×2 (09:17→17:25)
[2023-08-05] MEDS: SODIUM CITRATE/CITRIC ACID (500/334MG/5ML) UDC 30 ML SOLUTION PO SCH ×4 (09:18→21:12)
[2023-08-05] MEDS: ISOSORBIDE MONONITRATE 30 MG TAB.SR.24H PO SCH (09:23)
[2023-08-05] MEDS: AMLODIPINE 10 MG TABLET PO SCH (09:24)
[2023-08-05] MEDS: METOPROLOL TARTRATE 50 MG TABLET PO SCH ×2 (09:25→21:00)
[2023-08-05] MEDS: REMEDY ESSENTIAL ZINC PASTE 113 GM TOP SCH ×2 (09:26→21:17)
[2023-08-05] MEDS: CADEXOMER IODINE 40 GM TUBE TOP SCH ×2 (09:36→17:36)
[2023-08-05] MEDS: CLOTRIMAZOLE 1% CREAM 30 GM TUBE TOP SCH ×2 (09:36→17:37)
[2023-08-05 11:00] VITALS: BP 121/59; TEMP 97.9; O2SAT 96
[2023-08-05] MEDS ORDERED: VANCOMYCIN IV 1,000 MG in IV DEXTROSE 5% 250 ML IV ONE (12:00)
[2023-08-05] MEDS: CEFEPIME HCL 2 G in IV DEXTROSE 5% 100 ML IV SCH (15:22)
[2023-08-05 16:00] VITALS: BP 129/62; TEMP 97.9; O2SAT 96
[2023-08-05] MEDS: INSULIN REGULAR, HUMAN 300 UNIT/3 ML VIAL SQ PRN ×2 (17:26→21:36)
[2023-08-05 20:08] VITALS: BP 110/53; TEMP 98.8; O2SAT 90
[2023-08-05 20:51] VITALS: BP 110/53; TEMP 98.8; O2SAT 99
[2023-08-05] MEDS: SENNOSIDES 1 TABLET PO SCH (21:00)
[2023-08-06] MEDS: IV 1/2NS 1000 ML 1,000 ML IV PRN (01:19)
[2023-08-06 04:05] VITALS: BP 126/46; TEMP 98; O2SAT 91
[2023-08-06] MEDS: PANTOPRAZOLE SODIUM 40 MG TABLET.DR PO SCH (06:52)
[2023-08-06] MEDS: BLOOD SUGAR DIAGNOSTIC 1 EACH STRIP VI SCH ×4 (06:58→21:02)
[2023-08-06] MEDS: ACIDOPHILUS/BULGARICUS CHEW TAB PO SCH ×2 (08:58→21:00)
[2023-08-06] MEDS: ASCORBIC ACID 500 MG TABLET PO SCH (08:58)
[2023-08-06] MEDS: DOCUSATE SODIUM 100 MG CAPSULE PO SCH ×2 (09:00→17:00)
[2023-08-06] MEDS: SODIUM CITRATE/CITRIC ACID (500/334MG/5ML) UDC 30 ML SOLUTION PO SCH ×4 (09:04→21:03)
[2023-08-06] MEDS: ISOSORBIDE MONONITRATE 30 MG TAB.SR.24H PO SCH (09:06)
[2023-08-06] MEDS: AMLODIPINE 10 MG TABLET PO SCH (09:07)
[2023-08-06] MEDS: METOPROLOL TARTRATE 50 MG TABLET PO SCH ×2 (09:08→21:10)
[2023-08-06] MEDS: CADEXOMER IODINE 40 GM TUBE TOP SCH ×2 (09:09→17:44)
[2023-08-06] MEDS: CLOTRIMAZOLE 1% CREAM 30 GM TUBE TOP SCH ×2 (09:09→17:43)
[2023-08-06] MEDS: REMEDY ESSENTIAL ZINC PASTE 113 GM TOP SCH ×2 (09:10→21:03)
[2023-08-06 09:18] LABS: BASOPHILS % (AUTO) 0.7 % (0.0-2.0); EOSINOPHILS # (AUTO) 0.1 K/uL (0.0-0.7); EOSINOPHILS % (AUTO) 2.4 % (0.0-7.0); HEMATOCRIT 23.8 % (31.2-41.9); HEMOGLOBIN 7.6 g/dL (10.9-14.3); LYMPHOCYTES # (AUTO) 0.5 K/uL (0.8-4.8); LYMPHOCYTES % (AUTO) 8.8 % (20.5-51.5); MEAN CORPUSCULAR HEMOGLOBIN 29.9 uug (24.7-32.8); MEAN CORPUSCULAR HGB CONC 32 g/dL (32.3-35.6); MEAN CORPUSCULAR VOLUME 93.8 fL (75.5-95.3); MONOCYTES # (AUTO) 0.6 K/uL (0.1-1.30); MONOCYTES % (AUTO) 10.8 % (0.0-11.0); NEUTROPHILS # (AUTO) 4.5 K/uL (1.8-8.9); NEUTROPHILS % (AUTO) 77.3 % (38.5-71.5); PLATELET COUNT (AUTO) 193 K/uL (179-408); RED BLOOD CELL COUNT(AUTO) 2.54 MIL/uL (3.63-4.92); RED CELL DISTRIBUTION WIDTH 16.1 % (12.3-17.7); WHITE BLOOD COUNT (AUTO) 5.9 K/uL (3.8-11.8)
[2023-08-06 09:21] LABS: DIFFERENTIAL COMMENT 1
[2023-08-06 09:31] LABS: ALBUMIN 1.9 g/dL (3.4-5.0); BILIRUBIN,TOTAL 0.2 mg/dL (0.2-1.0); CALCIUM 8.5 mg/dL (8.5-10.1); CREATININE 3.6 mg/dL (0.6-1.3); MAGNESIUM 1.6 mg/dL (1.8-2.4); PHOSPHOROUS 4.6 mg/dL (2.5-4.9); POTASSIUM 4.8 mmol/L (3.5-5.1); TOTAL PROTEIN, SERUM 5.9 g/dL (6.4-8.2)
[2023-08-06 11:09] LABS: PTH, INTACT 47 pg/mL (15-65)
[2023-08-06 11:50] VITALS: BP 124/72; TEMP 97.7; O2SAT 98
[2023-08-06] MEDS: INSULIN REGULAR, HUMAN 300 UNIT/3 ML VIAL SQ PRN ×2 (12:27→21:08)
[2023-08-06] MEDS: CEFEPIME HCL 2 G in IV DEXTROSE 5% 100 ML IV SCH (15:22)
[2023-08-06 16:13] VITALS: BP 108/52; TEMP 97.7; O2SAT 93
[2023-08-06 20:16] VITALS: BP 131/60; TEMP 98.3; O2SAT 96
[2023-08-06] MEDS: SENNOSIDES 1 TABLET PO SCH (21:00)
[2023-08-07] MEDS: IV 1/2NS 1000 ML 1,000 ML IV PRN (03:19)
[2023-08-07 04:30] VITALS: BP 118/55; TEMP 98.2; O2SAT 93
[2023-08-07] MEDS: PANTOPRAZOLE SODIUM 40 MG TABLET.DR PO SCH (07:00)
[2023-08-07 07:43] LABS: CALCIUM 8.5 mg/dL (8.5-10.1); CREATININE 3.6 mg/dL (0.6-1.3); POTASSIUM 4.9 mmol/L (3.5-5.1)
[2023-08-07] MEDS: BLOOD SUGAR DIAGNOSTIC 1 EACH STRIP VI SCH ×2 (08:03→11:46)
[2023-08-07] MEDS: AMLODIPINE 10 MG TABLET PO SCH (08:47)
[2023-08-07] MEDS: ASCORBIC ACID 500 MG TABLET PO SCH (08:47)
[2023-08-07] MEDS: METOPROLOL TARTRATE 50 MG TABLET PO SCH (08:47)
[2023-08-07] MEDS: DOCUSATE SODIUM 100 MG CAPSULE PO SCH (08:47)
[2023-08-07] MEDS: CLOTRIMAZOLE 1% CREAM 30 GM TUBE TOP SCH (08:47)
[2023-08-07] MEDS: ACIDOPHILUS/BULGARICUS CHEW TAB PO SCH (08:47)
[2023-08-07] MEDS: ISOSORBIDE MONONITRATE 30 MG TAB.SR.24H PO SCH (08:47)
[2023-08-07] MEDS: REMEDY ESSENTIAL ZINC PASTE 113 GM TOP SCH (08:48)
[2023-08-07] MEDS: CADEXOMER IODINE 40 GM TUBE TOP SCH (08:48)
[2023-08-07] MEDS: SODIUM CITRATE/CITRIC ACID (500/334MG/5ML) UDC 30 ML SOLUTION PO SCH ×2 (08:49→11:46)
[2023-08-07] MEDS ORDERED: VANCOMYCIN IV 1,000 MG in IV DEXTROSE 5% 250 ML IV ONE (09:00)
[2023-08-07 09:06] LABS: A/G RATIO 0.8 (0.7-1.7); ALBUMIN 2.4 g/dL (2.9-4.4); ALPHA-1-GLOBULIN 0.3 g/dL (0.0-0.4); ALPHA-2-GLOBULIN 0.8 g/dL (0.4-1.0); BETA GLOBULIN 0.9 g/dL (0.7-1.3); GAMMA GLOBULIN 1.2 g/dL (0.4-1.8); GLOBULIN, TOTAL 3.2 g/dL (2.2-3.9); M-SPIKE Not Observed g/dL (Not Observed)
[2023-08-07] MEDS ORDERED: SULF1TAB48 PO (09:42)
[2023-08-07 11:14] VITALS: BP 127/49; TEMP 98.4; O2SAT 97
[2023-08-07] MEDS: CEFEPIME HCL 2 G in IV DEXTROSE 5% 100 ML IV SCH (14:00)
[2023-08-09] MEDS ORDERED: VANCOMYCIN IV 1,250 MG in IV DEXTROSE 5% 250 ML IV SCH (06:00)
== END 2023-08-07 15:45 | DRG 299 ==
LOC: ER 11:00 → TELE3 22:03 → MEDSURG3 22:49
PROVIDERS: ADMIT Internal Medicine; ATTEND Internal Medicine
PROC: 05HC33Z Insertion of Infusion Device into Left Basilic Vein, Percutaneous Approach (ICD-10-PCS; principal; 2023-08-03)
DX: I87.312 Chronic venous hypertension (idiopathic) with ulcer of left lower extremity (principal); E43 Unspecified severe protein-calorie malnutrition; L03.116 Cellulitis of left lower limb; E87.20 Acidosis, unspecified; L97.828 Non-pressure chronic ulcer of other part of left lower leg with other specified severity; L97.428 Non-pressure chronic ulcer of left heel and midfoot with other specified severity; I13.0 Hypertensive heart and chronic kidney disease with heart failure and stage 1 through stage 4 chronic kidney disease, or unspecified chronic kidney disease; I50.32 Chronic diastolic (congestive) heart failure; D68.59 Other primary thrombophilia; N17.9 Acute kidney failure, unspecified; E87.5 Hyperkalemia; E11.621 Type 2 diabetes mellitus with foot ulcer; I87.8 Other specified disorders of veins; Z68.31 Body mass index [BMI] 31.0-31.9, adult; L90.5 Scar conditions and fibrosis of skin; Z74.09 Other reduced mobility; G89.29 Other chronic pain; K94.29 Other complications of gastrostomy; Q78.9 Osteochondrodysplasia, unspecified; E11.22 Type 2 diabetes mellitus with diabetic chronic kidney disease; N18.9 Chronic kidney disease, unspecified; Z79.4 Long term (current) use of insulin; Z86.14 Personal history of Methicillin resistant Staphylococcus aureus infection; E11.40 Type 2 diabetes mellitus with diabetic neuropathy, unspecified; D63.8 Anemia in other chronic diseases classified elsewhere; Z86.79 Personal history of other diseases of the circulatory system; Z79.899 Other long term (current) drug therapy; Z87.891 Personal history of nicotine dependence; Z87.441 Personal history of nephrotic syndrome
CPT/HCPCS: 36415; 70030-TC; 71045; 73590; 73620; 76770; 83550; 83605; 83735; 83970; 84100; 84155; 84165; 84443; 84484; 85025; 85730; 86850; 86900; 86901; 86920; 87040; 93005; A4606; A4663; A6209; A6213; G0378; J0360; J0692; J0696; J1644; J1815; J1940; J2543; J3370; J3490; J7040; J7050; P9016